=== PATIENT | female | born 1955 | race Caucasian/White ===

== ENCOUNTER → 2017-11-08 | Outpatient (CLI) | payer BC | END | disposition home or self-care (01) | LOC: KCIC DEXA 13:19 | DX: Z13.820 Encounter for screening for osteoporosis (principal); M47.896 Other spondylosis, lumbar region; M48.07 Spinal stenosis, lumbosacral region; M48.061 Spinal stenosis, lumbar region without neurogenic claudication; E55.9 Vitamin D deficiency, unspecified; E78.5 Hyperlipidemia, unspecified; E21.3 Hyperparathyroidism, unspecified; E66.9 Obesity, unspecified; E03.9 Hypothyroidism, unspecified; Z98.890 Other specified postprocedural states; Z78.0 Asymptomatic menopausal state | CPT/HCPCS: 72110; 73502; 77080 ==

== ENCOUNTER → 2019-03-19 | Outpatient (CLI) | payer BC ==
--- NOTE | 2019-03-19 15:20 | KCIC ---
EXAM: Lumbar spine, 5 views; sacrum and coccyx, 3 views. HISTORY: Pain. COMPARISON: 11/08/2017 FINDINGS: 5 views lumbar spine and 3 views of the sacrum and coccyx are obtained. 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 For the purposes of this dictation, the last lumbar segment is considered L5. Based on this numbering system, there is grade 1 anterolisthesis of L5 on S1, and to a lesser extent, L4 and L5. There is minimal endplate remodeling at multiple levels. There is disc space narrowing and facet arthropathy at the lumbosacral junction. The sacroiliac joints are intact. IMPRESSION: 1. Grade 1 anterolisthesis and degenerative change at the lower lumbar levels. This is not appreciably changed compared to the prior study. 2. No acute osseous finding. Electronically signed by: Carrie Choudhury MD (03/19/2019 3:17 PM) [id number]
== END | disposition home or self-care (01) ==
LOC: KCIC 14:28
PROVIDERS: ATTEND Nurse Practitioner Acute Care
DX: M43.16 Spondylolisthesis, lumbar region (principal); M48.061 Spinal stenosis, lumbar region without neurogenic claudication; M54.16 Radiculopathy, lumbar region; M12.88 Other specific arthropathies, not elsewhere classified, other specified site
CPT/HCPCS: 72110; 72220